=== PATIENT | male | born 1970 | race African-American/Black ===

== ENCOUNTER → 2017-04-16 | Outpatient (CLI) | payer OTHER ==
--- NOTE | ~2017-04-16 | US49 ---
[facility] A Service of [facility] & [facility] RADIOLOGY TEXT RESULTS PATIENT: HALLEY SANTOS II LOCATION: [facility] : 70 UNIT #: [id number] AGE: [address]: ZACHARY KENNEDY APRN SEX: M ORDER DR: [id number] [facility] [address] [place], [place] [address] [id number] O MR#: [id number] Acc #: [id number] NAME: HALLEY SANTOS II : 1970 SEX: M STUDY DATE/TIME: 04/16/2017 16:19 UNIT: [facility] ROOM: STUDY DESCRIPTION: US Extremity Non Vasc Complete Attending Physician: Paul Kennedy Aprn Referring Physician: Paul Kennedy Aprn Ordering Physician: Cassandra Parnell A.P.R.N. Primary Care Physician: Paul Kennedy Aprn MEDICAL IMAGING REPORT This report is preliminary unless electronic signature is present EXAM Ultrasound examination of both groins. HISTORY Left groin pain since back surgery 10 years ago. Left scrotal fullness throughout the day. Evaluate for hernias. TECHNIQUE Ultrasound evaluation was performed with luo-scale and color-flow imaging. FINDINGS Fullness is noted in both groins with apparent bilateral inguinal hernias. No definite bowel loops are seen. IMPRESSION Bilateral inguinal hernias containing fat and omentum. Dictated by... Jovany Livingston M.D. THIS IS AN ELECTRONICALLY VERIFIED REPORT Jovany Livingston M.D. at 04/21/2017 4:42 PM IVET/neftaly TD: 04/21/2017 13:44 JOB #: [id number] MEDICAL IMAGING REPORT Page 1 of 1 COPY
--- NOTE | ~2017-04-16 | US115 ---
[facility] A Service of [facility] & [facility] RADIOLOGY TEXT RESULTS PATIENT: HALLEY SANTOS II LOCATION: [facility] : 70 UNIT #: [id number] AGE: [address]: YARELY KENNEDY APRN SEX: M ORDER DR: [id number] [facility] [address] [place], [place] [address] [id number] O MR#: [id number] Acc #: [id number] NAME: HALLEY SANTOS : 1970 SEX: M STUDY DATE/TIME: 04/16/2017 16:02 UNIT: [facility] ROOM: STUDY DESCRIPTION: US Scrotum and Contents Attending Physician: Yarely Kennedy Referring Physician: Yarely Kennedy Ordering Physician: Cassandra Parnell A.P.R.N. Primary Care Physician: Yarely Kennedy MEDICAL IMAGING REPORT This report is preliminary unless electronic signature is present EXAM Scrotal ultrasound. INDICATIONS Left testicular pain for the past 10 years. PROCEDURE Polo-scale and Doppler imaging scrotum and scrotal contents. COMPARISON None. FINDINGS Right testicle measures 4.5 x 2.2 x 3.4 cm. Small right hydrocele. No testicular mass. Left testicle measures 4.4 x 2.1 x 3.0 cm. Small left hydrocele. No testicular mass. Both testicles show normal flow. IMPRESSION Small bilateral hydroceles. Otherwise negative scrotal ultrasound. Dictated by... Elijah Osborne M.D. THIS IS AN ELECTRONICALLY VERIFIED REPORT Elijah Osborne M.D. at 04/20/2017 7:09 AM RUFUS/maye TD: 04/19/2017 13:29 JOB #: [id number] MEDICAL IMAGING REPORT Page 1 of 1 COPY
== END | disposition home or self-care (01) ==
LOC: CGUS 15:46
DX: N50.819 Testicular pain, unspecified (principal); R10.30 Lower abdominal pain, unspecified; N43.3 Hydrocele, unspecified
CPT/HCPCS: 76870; 76881